=== PATIENT | male | born 1960 | race Caucasian/White ===

== ENCOUNTER → 2017-02-18 | Outpatient (CLI) | payer BC ==
--- NOTE | 2017-02-19 05:22 | PAP/PSG TECHNICIAN REPORT ---
[facility] Coal Handling Supervisor Polysomnogram Report Study name: None Report date: 02/19/2017 Study date: 02/18/2017 Referring Physician: Name: EMELI AARON Interpreting Physician: Gamaliel Loya M.D. Date of : 1960 Coal Handling Supervisor: Trae Emmanuel RPSGT. Sex: Male Age: 56 StudyType: PSG PAP Weight: 290 lbs Height: 56 years, Height 6' 2" BMI: 37.23 Medications: LISINOPRIL-HYDROCHLOROTHIAZIDE 20-12.5 MG, ZYLOPRIM 100 MG, BYSTOLIC 10 MG, MYCOLOG, MORVASC 5 MG Patient History PATIENT HAS HISTORY OF SNORING, FATIGUE AND DAYTIME SLEEPINESS. HE HAD A HOME SLEEP STUDY DONE IN 2016 AND WAS POSITIVE FOR EDUARDO WITH AN RDI OF 27.1/HR. HE IS HERE TODAY FOR A CPAP TITRATION. RM 7 Parameters Monitored NPSG: E1-M2, E2-M1, Fp1-M2, Fp2-M1, F3-M2, F4-M2, F4-M1, C3-M2, C4-M2, C4-M1, O1-M2, O2-M2, O2-M1, T3-M2, T4-M1, P3-M2, P4-M1, CHIN1, CHIN2, HR, EKG, Legs, PFLOW, SNOR, FLOW, CFLOW, Tidal Volume, THOR, ABDO, SpO2, PLTH, CPRESS, ETCO2 Wave, ETCO2, pH Sleep Architecture Sleep Stages Time at Lights Off 11:01:21 PM STAGES Time (min.) TST (%) Time at Lights On 5:04:21 AM Wake 52.0 -- Total Recording Time (TRT) 363.50 min. N1 14.5 5 Total Sleep Period (TSP) 357.5 min. N2 166.5 54 Total Sleep Time (TST) 311.0min. N3 73.5 24 Awake Time 52.5 min. REM 56.5 18 Wake after Sleep Onset 49.0 min. Sleep Efficiency (SE) 86 % Sleep Onset Latency (SHARA) 3.0 min. Number of Stage 1 Shifts None Awakenings 23 Stage Changes 75 Number of REM periods 4 REM 56.5 18 REM Latency 84.0 min. NREM 254.5 82 Body Position Analysis Supine Right Left Side Prone Vertical Total Sleep Time (min.) 252.6 23.2 63.0 86.19 0.0 0.0 Total Sleep Time (%) 72% 7% 20% 28 0% N/A% Total Sleep Time REM (min.) 28.5 0.0 28.0 None 0.0 0.0 Total Sleep Time NREM (min.) 196.3 23.2 35.0 None 0.0 0.0 Intermittent Wake (min.) 27.8 14.9 9.3 None 0.0 0.0 Total Sleep Period (%) 69% None None None None None Arousals Myoclonus (PLM) * Events Count Index Events Count Index Spontaneous 16 3 Events Awake (PLMW) 34 39.2 Respiratory 1 0.2 Events Asleep w/ Arousal (PLMA) 0 0.0 PLM 0 0 Events Asleep w/o Arousal (PLMS) 83 16.0 Snoring 1 0 Total Asleep 83 16.0 Total 18 3 Total 117 19 Respiratory Analysis * CA OA MA CH H RERA Total Count 0 0 0 0 25 0 25 Index 0.0 0.0 0.0 0 4.8 0 4.8 Mean Duration 0.0 0.0 0.0 0.00 19.8 0.0 19.8 Longest Duration 0.0 0.0 0.0 0.00 0.0 0.0 29.1 Respiratory Event Summary Total Supine ~Supine Right Left Prone REM NREM Apneas Count 0 0 0 0 0 N/A 0 0 Index 0.0 0 0 0.0 0.0 N/A 0 0 Hypopneas (4% Desat) Count 25 23 2 0 2 N/A 6 19 Index 4.8 6.1 1 0.0 1.9 N/A 6.4 4.5 Apneas & All Hypopneas Count 25 23 2 0 2 N/A 6 19 Index 4.8 6 1 0 2 N/A 6.4 4.5 Respiratory Events (Computer Compositor+All Hyp+RERA) Count 25 23 2 0 2 N/A 6 19 Index 4.8 6 1 0.0 1.9 N/A 6.4 4.5 Respiratory Related Arousal Count 1 23 0 0 0 N/A 0 1 Index 0.2 0 0 0 0 N/A 0 0 Snoring Analysis Supine Right Left Prone REM NREM Total Snore duration 2.7 min Snores count 118 7 2 N/A 3 124 127 Snore mean duration 1.3 Sec Snores index 31 18 2 N/A 3.2 29.2 24.5 TST with snoring (%) 0.9% Desaturation Event Summary: Minimum %SpO2 Event Count Mean/Min/Max Duration(sec.) Desaturation Index % Time In Bed > 90 35 33.3 / 6.3 / 81.2 6.2 93.9 86 - 90 1 11.0 / 11.0 / 11.0 2.7 6.1 81 - 85 0 N/A 0.0 0.0 76 - 80 0 N/A 0.0 0.0 71 - 75 0 N/A 0.0 0.0 66 - 70 0 N/A 0.0 0.0 61 - 65 0 N/A 0.0 0.0 56 - 60 0 N/A 0.0 0.0 51 - 55 0 N/A 0.0 0.0 < 50 0 N/A 0.0 0.0 Total REM NREM Awake <50% 0.0 min. 0.0 min. 0.0 min. 0.0 min. 51 - 60% 0.0 min. 0.0 min. 0.0 min. 0.0 min. 61 - 70% 0.0 min. 0.0 min. 0.0 min. 0.0 min. 71 - 80% 0.0 min. 0.0 min. 0.0 min. 0.0 min. 81 - 90% 22.1 min. 6.7 min. 13.5 min. 1.9 min. 91 - 100% 340.8 min. 49.8 min. 241.0 min. 50.0 min. Average 93 92 92 94 Minimum SpO2 86 88 86 86 Desaturation Event Index 5.8 6.4 4.2 12.7 # Desat. Events below 89% 8 1 6 1 Time(%) with Saturation below 89% 0.7 0.0 0.5 0.2 Time(min.) with Saturation below 89% 2.7 0.1 1.7 0.9 Time (mins) REM (mins) NREM (mins) % of TST SpO2 Below 90% 21 6 N15 1.9 SpO2 Below 88% 5 0 0 0 Heart Rate Analysis Min (bpm) Max (bpm) Average (bpm) Awake 52 92 68 NREM 50 86 59 REM 50 75 62 Overall 50 86 59 Supplemental O2 Values Minimum O2 level: None Value Start Time End Time Coal Handling Supervisor Comments Mr. Aaron slept in the right, left and supine positions. PVC's noted. Leg movements noted. No bruxism noted. CPAP was initiated at +4 CMH2O and up-titrated to an optimal level of +9 CMH2O, which nearly eliminated all respiratory events and snoring. Mr. Aaron brought his own mask that was used during titration Mr. Aaron awoke to use the restroom 0 times during the night. Mr. Aaron stated I slept as well as I do when I am in my own bed. The final report will be interpreted and signed by a sleep physician. The completed physician report will then be placed in the patient medical record. Therapy Event: Therapy (cm H20) 4 5 7 8 9 Total Time at Pressure (min.) 19.2 64.1 54.7 56.3 168.6 TST at Pressure (min.) 10.2 61.1 47.2 55.3 137.1 # Periods 1 1 1 1 1 Sleep Onset (min.) 3.0 0.0 0.0 0.0 0.0 REM Onset (min.) N/A N/A 3.6 48.9 0.0 Sleep Efficiency % 53 95 86 98 81 Wakefulness (%) 46.8 4.7 13.7 1.8 18.7 Wakefulness (min.) 9.0 3.0 7.5 1.0 31.5 NREM 1 (%) 15.6 3.1 2.7 0.0 4.7 NREM 1 (min.) 3.0 2.0 1.5 0.0 8.0 NREM 2 (%) 37.6 57.9 32.4 38.0 49.2 NREM 2 (min.) 7.2 37.1 17.7 21.4 83.0 NREM 3 (%) 0.0 34.3 0.0 47.1 14.8 NREM 3 (min.) 0.0 22.0 0.0 26.5 25.0 REM (%) 0.0 0.0 51.2 13.2 12.5 REM (min.) 0.0 0.0 28.0 7.4 21.1 # Arousals 2 5 2 2 7 Arousal Index 11.7 4.9 2.5 2.2 3.1 # Snore 3 48 26 15 35 Snore Index 17.6 47.1 33.0 16.3 15.3 AHI 41.0 2.9 10.2 4.3 1.3 AHI Supine 44.2 6.0 23.1 4.3 1.6 AHI Non-Supine 0.0 0.0 3.8 N/A 0.0 NREM AHI 41.0 2.9 18.7 0.0 1.6 REM AHI N/A N/A 4.3 32.4 0.0 RDI 41.0 2.9 10.2 4.3 1.3 # Obstructive 0 0 0 0 0 # Central Ap 0 0 0 0 0 # Mixed 0 0 0 0 0 # Hypopneas 7 3 8 4 3 RERAS 0 0 0 0 0 Total Respiratory Events 7 3 8 4 3 Time Below SpO2 89.00% (min.) 0.1 0.7 0.5 0.4 0.1 Mean NREM SpO2 (%) 92 92 92 92 93 Mean REM SpO2 (%) N/A N/A 92 91 92 Mean Sleep SpO2 (%) 92 92 92 92 93 Min NREM SpO2 (%) 88 86 88 88 88 Min REM SpO2 (%) N/A N/A 89 88 90 Position Supine (min.) 9.5 30.2 15.6 55.3 114.2 Position Non-supine (min.) 0.7 30.9 31.6 0.0 22.9 LM Index Sleep 11.7 1.0 2.5 80.3 1.8 LM Index NREM 11.7 1.0 6.2 92.7 1.6 LM Index REM N/A N/A 0.0 0.0 2.8 Mean Heart Rate (bpm) 63 62 64 60 56 Min Heart Rate (bpm) 60 57 56 56 50
--- NOTE | 2017-02-28 09:25 | POLYSOMNOGRAPH REPORT ---
REFERRING PERSON: Dr. Arun Loya. EQUAL O[employer]UNITY DIRECTOR: Trae Emmanuel. Mr. Aaron is a 56-year-old male who had a home sleep test performed in December of 2016, which showed an AHI of 27.1. He returns to the sleep lab for a CPAP titration study. His [place] sleepiness scale score on the evening of this study is not recorded. BMI is 37.23. Following the technical and digital specifications of the [employer] (AASM) a standard diagnostic polysomnogram was performed monitoring EEG, EOG, EMG (chin and leg deviations), oxygen saturation, body position, digital video, respiratory effort and airflow. The sleep Stage and event scoring was based on the AASM Manual for the Scoring of Sleep and Associated Events 2007 edition. Apneas are defined as a drop in the peak thermal sensor excursion by >90% of baseline for at least 10 seconds. Hypopneas were scored using the 4% oxygen desaturation rule (4A-[employer]) and a decrease in the nasal pressure excursions by >30% of baseline for at least 10 seconds. Respiratory effort-related arousal (RERA's) is defined as a sequence of breaths lasting at least 10 seconds characterized by increasing respiratory effort or flattening of the nasal pressure waveform leading to an arousal from sleep when the sequence of breaths does not meet criteria for an apnea or hypopnea. Apnea Hypopnea index (AHI) is defined as the number of apneas and hypopneas occurring in an hour of sleep. Respiratory disturbance index (RDI) is defined as the number of apneas, hypopneas, and RERA's occurring in an hour of sleep. Mr. Aaron's total sleep period time was 357.5 minutes. Total sleep time was 311 minutes. Sleep efficiency was 86%. Latency to sleep onset was 3 minutes. Wake after sleep onset was 49 minutes. Total non-REM sleep time was 254.5 minutes. He spent 5% of that time in N1 sleep, 54% in N2 sleep and 24% in N3 sleep. REM latency was 84 minutes. Total REM sleep time was 56.5 minutes or 18% of total sleep time. There were 18 cortical arousals from sleep. One of these arousals was due to snoring, one due to respiratory events, and 16 were spontaneous. There were 83 periodic limb movements. Limb movement index was 16. Limb movement with arousal index was 0. There were no obstructive, central or mixed apneas on this test. There were 25 hypopneas and no RERA. On this titration, apnea-hypopnea index was normal at 4.8. There were 127 snoring events recorded. Total sleep time with snoring was 0.9%. Mean saturation during sleep was 93% with desaturations to 86%. Saturations were less than 89% for 2.7 minutes of recording time. There was some premature ventricular complexes noted on EKG monitoring. Heart rates ranged from a low of 50 beats per minute to a high of 86 beats per minute during sleep. As stated above, this was a CPAP titration study. He was titrated from a CPAP pressure of 4 to a CPAP pressure of 9 over the course of the night. Increasing pressures were needed to prevent hypopneas and arousals. He was observed for 137.1 minutes of sleep time. During that time, there were 21.1 minutes of supine REM sleep. AHI and RDI on this pressure were both 1.3. Saturations were less than 89% for 0.1 minutes of recording time. IMPRESSION AND PLAN: Successful CPAP titration study in this patient with known moderately severe sleep apnea. I would recommend that he be started on CPAP at a pressure of 9. A download can be reviewed in 1 month both to check compliance as well as AHI and further pressure adjustments can occur at that time.
== END | disposition home or self-care (01) ==
LOC: C.NEUR 21:00
PROVIDERS: ATTEND Family Medicine
DX: G47.34 Idiopathic sleep related nonobstructive alveolar hypoventilation (principal)